=== PATIENT | male | born 2000 | race American Indian/Alaskan Native ===

== ENCOUNTER 2022-01-24 11:49 | Emergency (ER) | payer MEDICAID ==
[2022-01-24 12:21] VITALS: BP 108/54
--- NOTE | 2022-01-24 12:39 | Emergency Department Report ---
HPI - General Chief Complaint: Allergic Reaction PUI?: No - HPI HPI: It is a 22-year-old that comes to the emergency room complaining of a rash, swelling of his eyes, runny eyes and nose. Denies fever or chills. Denies cough or congestion. Denies abdominal pain. He is ambulatory nontoxic and [id number]. He states that he thinks that the rash is related to pollen. However, he is not had this before ED Past Medical Hx - Past Medical History Previous Medical History?: Yes Hx Asthma: Yes - Surgical History Past Surgical History?: Yes - Family History Family history: no significant - Social History Smoking Status: Never Smoker Substance Use Type: None - Medications Home Medications: Home Medications Medication Instructions Recorded Confirmed Last Taken Type Cetirizine HCl [ZyrTEC] 10 mg PO DAILY #30 capsule 01/24/22 Unknown Rx predniSONE [Deltasone] 20 mg PO DAILY #5 tablet 01/24/22 Unknown Rx ED Review of Systems ROS: Stated complaint: ALLERGIC REACTION Other details as noted in HPI Comment: All other systems reviewed and negative Physical Exam - Physical Exam Vital Signs: Vital Signs 01/24/22 12:19 Temperature 98.3 F Pulse Rate 64 Respiratory 18 Rate Blood Pressure 108/54 [Right] O2 Sat by Pulse 99 Oximetry General: Alert and oriented x4 Eyes are swollen bilaterally, soft tissue associated with allergies Rhinitis Throat red Lungs clear to auscultation Abdomen soft nontender ED Course Vital Signs 01/24/22 12:19 Temperature 98.3 F Pulse Rate 64 Respiratory 18 Rate Blood Pressure 108/54 [Right] O2 Sat by Pulse 99 Oximetry ED Medical Decision Making - Medical Decision Making Vital Signs 01/24/22 12:19 Temperature 98.3 F Pulse Rate 64 Respiratory 18 Rate Blood Pressure 108/54 [Right] O2 Sat by Pulse 99 Oximetry Patient suffering with allergic rhinitis. Patient has been educated on treatment management. Patient being discharged home with discharge plan of care including diet, activity, medications and follow-up. He verbalizes understanding. - Differential Diagnosis Allergic rhinitis Critical care attestation.: If time is entered above; I have spent that time in minutes in the direct care of this critically ill patient, excluding procedure time. ED Disposition Clinical Impression: Pollen allergy Allergic rhinitis Qualifiers: Allergic rhinitis trigger: pollen Allergic rhinitis seasonality: seasonal Qualified Code(s): J30.1 - Allergic rhinitis due to pollen Disposition: 01 HOME / SELF CARE / HOMELESS Is pt being admited?: No Does the pt Need Aspirin: No Condition: Stable Instructions: Allergies, Adult, [id number] Additional Instructions: Medications as ordered today. Follow-up with primary care if your symptoms persist. I have given you referral below Referrals: LINDA VIGIL MD [Staff Physician] - 3-5 Days Time of Disposition: 12:41
[2022-01-24] MEDS ORDERED: LIDOCAINE-MPF (1%) 10 MG/1 ML VIAL 5 ML INFILTRATI ONE (12:52)
== END 2022-01-24 13:11 | disposition home or self-care (01) ==
LOC: ED 11:49
DX: J30.1 Allergic rhinitis due to pollen (principal)
CPT/HCPCS: 96372; 99282; J0696; J3490